=== PATIENT | male | born 1965 | race Asian ===

== ENCOUNTER 2018-12-12 13:46 | Emergency (ER) | payer OTHER ==
--- NOTE | 2018-12-12 14:05 | ED ---
HPI Chest Pain - HPI Summary HPI Summary: A 53 y/o male presents to [facility] with a chief complaint of intermittent chest pain for one week. He also reports headache for one week and weakness in his left arm two days ago. At triage he rated his pain as a 3/10 in severity. He claims that he has his pain more often at night. He denies numbness, SOB or N/ V. He describes his pain as a pressure and sometimes a mild stabbing pain. His PCP is Dr. Gray. He is a non-smoker. Hx of fasciitis. FHx mother positive for thyroid cancer, negative for GA, father at an old age and was reportedly healthy. SHx lipoma removal - History of Current Complaint Chief Complaint: EDChestPainROMI Time Seen by Provider: 12/12/18 13:57 Hx Obtained From: Patient Onset/Duration: Started Days Ago, Still Present Timing: Intermittent, Lasting Days Initial Severity: Mild Current Severity: Mild Pain Intensity: 3 Pain Scale Used: 0-10 Numeric Chest Pain Location: Diffuse Chest Pain Radiates: Yes Chest Pain Radiates To:: Arm - weakness Character: Dull/Aching, Pressure/Squeezing, Sharp/Stabbing Aggravating Factor(s): Nothing Alleviating Factor(s): Nothing Associated Signs and Symptoms: Positive: Headaches, Weakness. Negative: Numbness, Shortness of Breath, Fever, Nausea, Vomiting - Allergy/Home Medications Allergies/Adverse Reactions: Allergies Allergy/AdvReac Type Severity Reaction Status Date / Time No Known Allergies Allergy Verified 12/12/18 13:52 PMH/Surg Hx/FS Hx/Imm Hx Musculoskeletal History: Reports: Other Musculoskeletal History - fasciitis Denies: Hx Arthritis Sensory History: Denies: Hx Deafness - Surgical History Surgery Procedure, Year, and Place: lipoma removal Infectious Disease History: No Infectious Disease History: Denies: Traveled Outside the [place] in Last 30 Days - Family History Known Family History: Positive: Other - Positive: thyroid cancer-mother Negative: Cardiac Disease Review of Systems Negative: Fever Positive: Chest Pain Negative: Shortness Of Breath Negative: Vomiting, Nausea Positive: Headache, Weakness. Negative: Numbness All Other Systems Reviewed And Are Negative: Yes Physical Exam - Summary Physical Exam Summary: Appearance: The patient is well-nourished in no acute distress and in no acute pain. Skin: The skin is warm and dry and skin color reflects adequate perfusion. HEENT: The head is normocephalic and atraumatic. The pupils are equal and reactive. The conjunctivae are clear and without drainage. Nares are patent and without drainage. Mouth reveals moist mucous membranes and the throat is without erythema and exudate. The external ears are intact. The ear canals are patent and without drainage. The tympanic membranes are intact. Neck: The neck is supple with full range of motion and non-tender. There are no carotid bruits. There is no neck vein distension. Respiratory: Chest is non-tender. Lungs are clear to auscultation and breath sounds are symmetrical and equal. Cardiovascular: Heart is regular rate and rhythm. Soft systolic ejection murmur. There is no peripheral edema and pulses are symmetrical and equal. Abdomen: The abdomen is soft and non-tender. There are normal bowel sounds heard in all four quadrants and there is no organomegaly palpated. Musculoskeletal: There is no back tenderness noted. Extremities are non-tender with full range of motion. There is good capillary refill. There is no peripheral edema or calf tenderness elicited. Neurological: Patient is alert and oriented to person, place and time. The patient has symmetrical motor strength in all four extremities. Cranial nerves are grossly intact. Deep tendon reflexes are symmetrical and equal in all four extremities. Psychiatric: The patient has an appropriate affect and does not exhibit any anxiety or depression. Triage Information Reviewed: Yes Vital Signs On Initial Exam: Initial Vitals Temp Pulse Resp BP Pulse Ox 98.1 F 76 16 166/91 97 12/12/18 13:49 12/12/18 13:49 12/12/18 13:49 12/12/18 13:49 12/12/18 13:49 Vital Signs Reviewed: Yes Diagnostics - Vital Signs Vital Signs Temp Pulse Resp BP Pulse Ox 12/12/18 13:49 98.1 F 76 16 166/91 97 - Laboratory Result Diagrams: 12/12/18 14:21 12/12/18 14:21 Lab Statement: Any lab studies that have been ordered have been reviewed, and results considered in the medical decision making process. - Radiology CXR Radiology Interpretation Completed By: Radiologist Summary of Radiographic Findings: NO ACTIVE CARDIOPULMONARY DISEASE IS NOTED. ED physician has reviewed this imaging report. - CT cervical spine CT Interpretation Completed By: Radiologist Summary of CT Findings: 1. STRAIGHTENING OF THE CERVICAL SPINE, NO EVIDENCE FOR FRACTURE OR SUBLUXATION. 2. MILD TO MODERATE CERVICAL SPONDYLOSIS DESCRIBED. ED physician has reviewed this imaging report. - EKG 13:56 Cardiac Rate: NL - 60 bpm EKG Rhythm: Sinus Rhythm Summary of EKG Findings: Normal sinus rhythm at 60 bpm, normal ST, no ectopy, no STEMI Re-Evaluation - Re-Evaluation First Eval Re-Evaluation Time: 17:54 Change: Improved Comment: Discussed results. Patient is feeling better and will be dischaged. Chest Pain Course/Dx - Course Course Of Treatment: Mr. Bauer presented with a couple of days of headache and anterior chest pressure. He did not think a lot of it until he began to feel some possible weakness of his left arm although he is equivocal about it. Nothing really has been exacerbating or relieving the chest pain and it is not accompanied by any symptoms. He doesn't really have a lot of risk factors for heart disease. He was nontoxic in appearance with stable vital signs and unremarkable as recorded exam. EKG, chest x-ray and labs including a delayed troponin are all negative. CT of his neck was obtained and does show some bulging disc disease. I'm concerned that this is a cervical radiculopathy. I do not think anything dangerous happening at this point and recommended symptomatic treatment and close follow-up with his PCP. - Diagnoses Provider Diagnoses: Cervical radiculopathy Discharge - Sign-Out/Discharge Documenting (check all that apply): Patient Departure - DC Patient Received Moderate/Deep Sedation with Procedure: No - Discharge Plan Condition: Stable Disposition: HOME Patient Education Materials: Cervical Radiculopathy (ED) Referrals: Talon Gray MD [Primary Care Provider] - (next week) Additional Instructions: Recommend Ibuprofen. Return to the ED if you experience any new or worsening symptoms. - Billing Disposition and Condition Condition: STABLE Disposition: Home - Attestation Statements Document Initiated by Gareth: Yes Documenting Scribe: Christopher Mena Provider For Whom Gareth is Documenting (Include Credential): Valdo Loving MD Scribe Attestation: Christopher Guevara scribed for Valdo Loving MD on 12/12/18 at 1841. Scribe Documentation Reviewed: Yes Provider Attestation: The documentation as recorded by the Christopher armenta accurately reflects the service I personally performed and the decisions made by me, Valdo Loving MD Status of Scribe Document: Viewed
[2018-12-12 14:33] LABS: Hematocrit 39 % (36-46); Hemoglobin 12.5 g/dL (14.0-18.0); Mean Corpuscular HGB Conc 32 g/dL (31-36); Mean Corpuscular Hemoglobin 21 pg (27-31); Mean Corpuscular Volume 65 fL (80-94); Mean Platelet Volume 8.9 fL (7.4-10.4); Platelet Count 205 10^3/uL (150-450); Red Blood Count 6.04 10^6 /uL (4.18-5.48); Red Cell Distribution Width 15 % (10.5-15); White Blood Count 6.3 10^3/uL (3.5-10.8)
[2018-12-12 14:41] LABS: INR 0.92 (0.77-1.02)
[2018-12-12 14:49] LABS: Albumin 4.7 g/dL (3.2-5.2); Calcium 9.2 mg/dL (8.6-10.3); EGFR African American 94.9 (>60); EGFR Non-African American 78.5 (>60); Globulin 2.3 g/dL (2-4); Potassium 3.5 mmol/L (3.5-5.0); Total Bilirubin 0.4 mg/dL (0.2-1.0); Troponin I 0.01 ng/mL (<0.04)
[2018-12-12 15:01] LABS: ABS Basophils 0.1 10^3/ul (0-0.2); ABS Eosinophils 0.4 10^3/ul (0-0.6); ABS Lymphocytes 1.9 10^3/ul (1.0-4.8); ABS Monocytes 0.5 10^3/ul (0-0.8); ABS Neutrophils 3.3 10^3/ul (1.5-7.7); ABS Nucleated RBC 0 10^3/ul; Eosinophil % 6.6 %; Lymphocyte % 30.8 %; Nucleated Red Blood Cells % 0.2
[2018-12-12] MEDS ORDERED: Acetaminophen TAB* 325 MG PO ONE (15:31)
[2018-12-12 15:37] LABS: TSH (Thyroid Stimulating Horm) 0.78 mcIU/mL (0.34-5.60)
[2018-12-12 18:02] VITALS: BP 150/78
== END 2018-12-12 18:01 | disposition home or self-care (01) ==
LOC: ED 13:46
DX: M54.12 Radiculopathy, cervical region (principal); R07.89 Other chest pain; R51 Headache; R53.1 Weakness
CPT/HCPCS: 36415; 71045; 72125; 80053; 83605; 84443; 84484; 85025; 85060; 85379; 85610; 93005; 99283; A9270-GY

== ENCOUNTER 2018-12-18 19:24 | Observation (INO) | payer OTHER ==
--- NOTE | 2018-12-18 23:37 | ED ---
HPI Chest Pain - HPI Summary HPI Summary: This patient is a 53 year old M presenting to [facility] with a chief complaint of intermittent chest heaviness since 12/12/18. Here was here at [facility] on 12/12/18 during which he had a chest x-ray, CT scan, blood test, and EKG. He was d/c and told that he had a bulging disc in his neck. After leaving, he reports that the pain intensified. Patient went to see his PCP, Dr. Gray, today for a follow-up, and he was referred back here for a stress test. Patient reports headache, left arm weakness (only 12/17/18), and left arm numbness (only ). - History of Current Complaint Chief Complaint: EDGeneral Time Seen by Provider: 12/18/18 23:06 Hx Obtained From: Patient Onset/Duration: Started Days Ago - 12/12/18, Still Present Timing: Lasting Days - 12/12/18 Initial Severity: Moderate Current Severity: Moderate Pain Intensity: 7 Pain Scale Used: 0-10 Numeric Character: Heaviness Associated Signs and Symptoms: Positive: Chest Pain, Headaches, Numbness - Left arm, only on 12/17/18, Weakness - Left arm, only on 12/17/18 - Allergy/Home Medications Allergies/Adverse Reactions: Allergies Allergy/AdvReac Type Severity Reaction Status Date / Time No Known Allergies Allergy Verified 12/18/18 19:35 Home Medications: Home Medications NK [No Home Medications Reported] 12/18/18 [History Confirmed 12/18/18] PMH/Surg Hx/FS Hx/Imm Hx Musculoskeletal History: Reports: Other Musculoskeletal History - fasciitis Denies: Hx Arthritis Sensory History: Denies: Hx Deafness - Surgical History Surgery Procedure, Year, and Place: lipoma removal Infectious Disease History: No Infectious Disease History: Denies: Traveled Outside the [place] in Last 30 Days - Family History Known Family History: Positive: Other - Positive: thyroid cancer-mother Negative: Cardiac Disease - Social History Alcohol Use: Alcohol Amount: unknown Substance Use Type: Reports: None Smoking Status (MU): Unknown if Ever Smoked Review of Systems Positive: Chest Pain - Heaviness, intermittent Positive: Headache, Weakness - Left arm, only on 12/17/18, Numbness - Left arm, only on 12/17/18 All Other Systems Reviewed And Are Negative: Yes Physical Exam - Summary Physical Exam Summary: VITAL SIGNS: Reviewed. GENERAL: Patient is a well-developed and nourished MALE who is lying comfortable in the stretcher. Patient is not in any acute respiratory distress. HEAD AND FACE: No signs of trauma. No ecchymosis, hematomas or skull depressions. No sinus tenderness. EYES: PERRLA, EOMI x 2, No injected conjunctiva, no nystagmus. EARS: Hearing grossly intact. Ear canals and tympanic membranes are within normal limits. MOUTH: Oropharynx within normal limits. NECK: Supple, trachea is midline, no adenopathy, no JVD, no carotid bruit, no c- spine tenderness, neck with full ROM. CHEST: Symmetric, no tenderness at palpation LUNGS: Clear to auscultation bilaterally. No wheezing or crackles. CVS: Regular rate and rhythm, S1 and S2 present, no murmurs or gallops appreciated. ABDOMEN: Soft, non-tender. No signs of distention. No rebound no guarding, and no masses palpated. Bowel sounds are normal. EXTREMITIES: FROM in all major joints, no edema, no cyanosis or clubbing. NEURO: Alert and oriented x 3. No acute neurological deficits. Speech is normal and follows commands. SKIN: Dry and warm Triage Information Reviewed: Yes Vital Signs On Initial Exam: Initial Vitals Temp Pulse Resp BP Pulse Ox 97.6 F 62 16 172/102 98 12/18/18 19:30 12/18/18 19:30 12/18/18 19:30 12/18/18 19:30 12/18/18 19:30 Vital Signs Reviewed: Yes Diagnostics - Vital Signs Vital Signs Temp Pulse Resp BP Pulse Ox 12/18/18 22:00 97.7 F 60 16 142/85 99 12/18/18 19:30 97.6 F 62 16 172/102 98 - Laboratory Result Diagrams: 12/18/18 23:55 12/18/18 23:55 Lab Statement: Any lab studies that have been ordered have been reviewed, and results considered in the medical decision making process. - EKG 19:48 Cardiac Rate: NL - 64 BPM EKG Rhythm: Sinus Rhythm Summary of EKG Findings: J point elevation. No ischemic changes. Chest Pain Course/Dx - Course Course Of Treatment: This patient is a 53 year old M presenting to [facility] with a chief complaint of intermittent chest heaviness since 12/12/18. RBC 6.10 H, Hgb 12.5 L, MCV 65 L, MCH 21 L, Glucose 109 H, ALT 94 H. EKG showed J point elevation but was otherwise normal. I spoke with Dr. Cline who will admit the pt with a dx of chest pain. - Diagnoses Provider Diagnoses: Chest pain - Provider Notifications Discussed Care Of Patient With: Kendra Cline - Hospitalist Time Discussed With Above Provider: 01:02 Instructed by Provider To: Admit As Inpatient Discharge - Sign-Out/Discharge Documenting (check all that apply): Patient Departure - Admit Patient Received Moderate/Deep Sedation with Procedure: No - Discharge Plan Condition: Stable Disposition: ADMITTED TO [facility] Referrals: Talon Gray MD [Primary Care Provider] - - Attestation Statements Document Initiated by Scribe: Yes Documenting Scribe: Ajrun Bey Provider For Whom Scribe is Documenting (Include Credential): Brook Ramirez MD Scribe Attestation: Arjun Guevara, scribed for Brook Ramirez MD on 12/19/18 at 0102. Status of Scribe Document: Ready
[2018-12-18] MEDS ORDERED: Aspirin 81 mg CHEW TAB* 81 MG TAB.CHEW PO ONE (23:39)
[2018-12-19 00:05] LABS: ABS Basophils 0.1 10^3/ul (0-0.2); ABS Eosinophils 0.4 10^3/ul (0-0.6); ABS Lymphocytes 3.8 10^3/ul (1.0-4.8); ABS Monocytes 0.6 10^3/ul (0-0.8); ABS Neutrophils 3.2 10^3/ul (1.5-7.7); ABS Nucleated RBC 0 10^3/ul; Eosinophil % 5.5 %; Hematocrit 40 % (36-46); Hemoglobin 12.5 g/dL (14.0-18.0); Mean Corpuscular HGB Conc 31 g/dL (31-36); Mean Corpuscular Hemoglobin 21 pg (27-31); Mean Corpuscular Volume 65 fL (80-94); Mean Platelet Volume 8.8 fL (7.4-10.4); Nucleated Red Blood Cells % 0.1; Platelet Count 206 10^3/uL (150-450); Red Cell Distribution Width 15 % (10.5-15)
[2018-12-19 00:26] LABS: Albumin 4.6 g/dL (3.2-5.2); Albumin/Globulin Ratio 2.1 (1-3); BUN/Creatinine Ratio 12.9 (8-20); Calcium 9.2 mg/dL (8.6-10.3); EGFR African American 114.5 (>60); EGFR Non-African American 94.7 (>60); Globulin 2.2 g/dL (2-4); Magnesium 2.1 mg/dL (1.9-2.7); Potassium 3.5 mmol/L (3.5-5.0); Total Bilirubin 0.4 mg/dL (0.2-1.0); Total Protein 6.8 g/dL (6.4-8.9)
[2018-12-19] MEDS ORDERED: Ondansetron INJ* 2 MG/ML VIAL IV PRN (02:35)
[2018-12-19] MEDS ORDERED: Al Hydrox/Mg Hydrox/Simet LIQ* 30 ML UDC PO PRN (02:35)
[2018-12-19] MEDS ORDERED: Acetaminophen TAB* 325 MG PO PRN (02:35)
--- NOTE | 2018-12-19 04:43 | HP ---
CC: Talon Gray MD * HISTORY AND PHYSICAL: DATE OF ADMISSION: 12/19/18 TIME OF EVALUATION: 0200 PRIMARY CARE PHYSICIAN: Talon Gray MD CHIEF COMPLAINT: Chest pain. HISTORY OF PRESENT ILLNESS: This is a 53-year-old male with an unremarkable past medical history, who states he has had intermittent chest pain on and off for the past week. He states he came the the emergency room on the 12/12/18 where he was ruled out for acute coronary syndrome with two negative troponins. He had a chest x-ray and a cervical spine CT. The cervical spin CT was notable for straightening of the cervical spine. No evidence of fracture or subluxation, but [id number] cervical spondylosis as described. They thought that his headache and chest pain were due to a cervical radiculopathy with referred pain to the chest. He states the headache and the chest pain had started at the same time. They are not always together. They wax and wane. Nothing seems to be alleviate it or exacerbate it. His headaches is located in the top posterior with some neck pain and he has substernal chest tightness. No nausea, no shortness of breath, no vomiting or diarrhea, no fever. He states the past few days he has had a sore throat and a cough. The patient was sent home on the 12/12/18 from the emergency room and recommended followup with his primary care physician. He followed up with his primary care physician yesterday, 12/18/18 and he recommended he go back to the emergency room and stated he likely needs a stress test. In the emergency room, the patient was given aspirin 324 mg and referred to the hospitalist service for further evaluation. PAST MEDICAL HISTORY: None. MEDICATIONS: None. ALLERGIES: No known drug allergies. SOCIAL HISTORY: The patient lives with his and his daughter. His is his healthcare proxy. No history of smoking or illicit drug use. He occasionally drinks alcohol. He works in the [employer]. Code status is full code. FAMILY HISTORY: Father from old age. His mother is alive, had a stroke last year. REVIEW OF SYSTEMS: A 14-point review of systems as mentioned in the HPI, otherwise negative. Also, denies any exertional activity. No increase in burping or indigestion or GI symptoms. PHYSICAL EXAMINATION GENERAL: In no acute distress, resting comfortably with his daughter at the bedside. Vitals: Temp 97, pulse rate 53, respiratory rate is 14, oxygen saturation 98% on room air, blood pressure 142/85. HEENT: Head: Normocephalic. Pupils equal and reactive. Anicteric. Oropharynx: Mucous membranes moist. NECK: Supple. No lymphadenopathy. RESPIRATORY: Clear to auscultation. No wheeze, rhonchi or rales. CARDIAC: Regular rate and rhythm. No murmurs, rubs or gallops. ABDOMEN: Soft, nontender, nondistended. Extremities: No clubbing, cyanosis or edema. +1 DP. NEUROLOGIC: Alert and oriented x3. No gross focal neurologic deficits. DIAGNOSTIC STUDIES/LAB DATA: White count 8, hemoglobin 12.5, hemoglobin 40, platelets 206. Sodium 139, potassium 3.5, chloride 105, bicarb 26, BUN 11, creatinine 0.85, glucose 109, troponin is 0, BNP is 26. RADIOGRAPHIC DATA: EKG shows normal sinus rhythm. Early repolarization. Findings unchanged from his prior EKG. Chest x-ray from 12/12/18, no active cardiopulmonary disease. ASSESSMENT: This is a 53-year-old male with an unremarkable past medical history, who presents to the emergency room from his primary care office for a chest pain and headache. 1. Chest pain and headache. His initial workup for acute coronary syndrome is negative. He was ruled out on 12/12/18 for acute coronary syndrome. He does have some cervical spondylosis on his CAT scan that may be referred pain for his chest pain, it is unclear at this time. There is no obvious etiology for his chest pressure. Plan: We will admit him to CDU for observation. Continue trend his troponin, check a lipid panel, order a treadmill stress test. Continue him on a baby aspirin. If his stress test is negative, he should follow with his primary regarding his cervical radiculopathy and further workup for that. 2. FEN. We will keep him n.p.o. 3. DVT prophylaxis. The patient scores moderate risk. We will place him on heparin subcu t.i.d. 4. Code status. Full code. PATIENT TIME: Greater than 30 minutes was spent doing the history and physical , more than half the time spent in direct patient contact. [id number]/[facility] #: [id number] [facility]ITAL[facility]
[2018-12-19 06:00] LABS: HDL Cholesterol 37.7 mg/dL
[2018-12-19] MEDS ORDERED: Heparin VIAL(*) 5000 UNITS/ML VIAL (FIVE THOUSAND) SUBCUT SCH (06:00)
[2018-12-19] MEDS ORDERED: Aspirin 81 mg CHEW TAB* 81 MG TAB.CHEW PO SCH (09:00)
[2018-12-19 11:49] VITALS: BP 142/93
--- NOTE | 2018-12-19 21:18 | DS ---
DISCHARGE SUMMARY: DATE OF ADMISSION: 12/19/18 DATE OF DISCHARGE: 12/19/18 PRIMARY CARE PROVIDER: Dr. Gray. PRINCIPAL DIAGNOSIS: Noncardiac chest pain. SECONDARY DIAGNOSIS: Hypertensive response to exercise. DISCHARGE MEDICATIONS: Amlodipine 5 mg p.o. daily (new). HOSPITAL COURSE: Mr. Bauer is a 53-year-old male with no significant past medical history who states that over the last 1 week he has had off-and-on chest pain with associated neck and headache pain. The patient was initially seen in the ER on 12/12/18 where he was ruled out for an acute coronary syndrome and was felt to have radicular pain from the neck radiating to the chest. He was referred to his primary care provider whom he saw on 12/18/18 who then requested that he return to the emergency room to be admitted for stress test. The patient performed an exercise treadmill stress test on . This was a maximal stress test without any ischemic changes. He did have, however, a hypertensive response to exercise. The cause of the patient's chest pain still may be musculoskeletal or radicular pain. At this point, he is stable for discharge home. I have discussed with the patient starting amlodipine 5 mg daily for hypertension. His blood pressures have varied throughout the course of this hospitalization from 126/78, up to a maximum of 205/98. The patient will need further monitoring of his blood pressure as an outpatient and adjustments made if his blood pressure does not come to goal. Of note, the patient also had a lipid profile obtained, which revealed a total cholesterol of 155, an LDL of 83, and an HDL of 37.7. On the day of discharge, the patient is awake, alert, and oriented, sitting up on the edge of the bed, in no acute distress. HEENT: Pupils are equal and round. Extraocular muscles are intact. Oropharynx is clear. Oral mucosa is moist. Cardiac: Normal S1, S2. Regular rate and rhythm. I do not appreciate any murmurs. There is no lower extremity edema. Pulmonary: Lungs are clear to auscultation bilaterally. Abdomen: Bowel sounds are present. Abdomen is soft, nontender, nondistended. FOLLOWUP CONCERNS: The patient is being discharged to home today, 12/19/18. ACTIVITY LEVEL: As tolerated. DIET: Heart healthy. CONDITION ON DISCHARGE: Stable. The patient has been asked to follow up with Dr. Gray in the next 4 to 7 days. TIME SPENT: Twenty-five minutes were spent discharging this patient. [id number]/[facility] #: [id number] [facility]
== END 2018-12-19 14:50 | disposition home or self-care (01) ==
LOC: ED 19:24 → MEDTELE 12-19 02:35
PROVIDERS: ADMIT Pediatrics; ATTEND Hospitalist
DX: R07.89 Other chest pain (principal); R51 Headache; R53.1 Weakness; R20.0 Anesthesia of skin
CPT/HCPCS: 36415; 80053; 80061; 83735; 83880; 84484; 85025; 85730; 93005; 96372; 96374; 99283; A9270-GY; G0378; J1644

== ENCOUNTER 2019-04-09 18:43 | Emergency (ER) | payer OTHER ==
--- OUTSIDE RECORDS SUMMARY | 2019-04-09 18:52 | XMS REPORT | Continuity of Care Document ---
:1965 External Reference #:[id number] Author Name Janki Prater, [facility] Address [address] [place] [address] Care Team Providers Name Role Phone Talon Gray MD Care Team Information Director Of Strategic Sales Unavailable Talon Gray MD Primary Care Physician Unavailable Payers Date Identification Numbers Payment Provider Subscriber Effective: Policy Number: [id number] [facility] Antonio Pitts 2015 [employer] Number: [id number] [address] PayID: [id number] [place] [address] Problems Active Problems Provider Date Essential hypertension Talon Gray M.D. 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 [employer] Tobacco Use Start: Unknown Denies Tobacco Use ETOH Use Occasional Recreational Drug Use Denies Drug Use Tobacco Use Start: Unknown Patient has never smoked Exercise Type/Frequency Current Does not exercise Allergies, Adverse Reactions, Alerts Description No Known Drug Allergies Medications Active Medications SIG Qnty Indications Ordering Provider Date Famotidine take one tablet 15tabs L29.8 Janki Prater, 03/17/2019 20mg Tablets by mouth twice a 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 12/18/2018 Capsules needed for pain, with food No Active Medications Unknown 06/21/2014 - 06/17/2017 Physical Therapy evaluate and 724.4 Rosetta Saunders 04/28/2011 - treat low back Brenna Heard 06/21/2014 pain and neck pain with r arm numbness Levaquin 1 po qd 25tabs 601.9 Kenneth Ramirez, 05/18/2010 - 500mg Tablets M.D. 04/28/2011 Cipro 1 po bid x10d 20tabs 601.9 Trisha Gamble, 05/05/2010 - 500mg Tablets Afnp-C 05/15/2010 Norvasc 1 by mouth every Unknown - 5mg Tablets day 02/26/2019 Immunizations CPT Code Status Date Vaccine Lot # [id number] Given 06/21/2014 Tdap Tetanus, W Pertussis [id number] Vital Signs Date Vital Result Comment 03/17/2019 6:21pm BP Systolic 108 mmHg BP Diastolic 80 mmHg Heart Rate 62 /min Body Temperature 97.5 F Respiratory Rate 16 /min Height 67 inches 5'7" Weight 185.00 lb BMI (Body Mass Index) 29.0 kg/m2 02/26/2019 9:44am BP Systolic 128 mmHg BP Diastolic 88 mmHg Heart Rate 68 /min Body Temperature 98.0 F Height 67 inches 5'7" Weight 191.00 lb BMI (Body Mass Index) 29.9 kg/m2 12/31/2018 11:06am BP Systolic 130 mmHg BP Diastolic 82 mmHg Heart Rate 68 /min Body Temperature 98.1 F Respiratory Rate 16 /min O2 % BldC Oximetry 95 % Height 67 inches 5'7" Weight 193.00 lb BMI (Body Mass Index) 30.2 kg/m2 12/18/2018 6:08pm BP Systolic 142 mmHg BP Diastolic 80 mmHg Heart Rate 64 /min Body Temperature 98.5 F Respiratory Rate 16 /min Height 67 inches 5'7" Weight 195.00 lb BMI (Body Mass Index) 30.5 kg/m2 06/17/2017 4:31pm BP Systolic 138 mmHg BP Diastolic 84 mmHg Heart Rate 56 /min Body Temperature 97.9 F Respiratory Rate 16 /min Height 67 inches 5'7" Weight 194.38 lb BMI (Body Mass Index) 30.4 kg/m2 06/12/2017 4:28pm BP Systolic 130 mmHg BP Diastolic 78 mmHg Heart Rate 80 /min Body Temperature 98.4 F Respiratory Rate 16 /min Height 67 inches 5'7" Weight 196.00 lb BMI (Body Mass Index) 30.7 kg/m2 06/02/2015 11:13am BP Systolic 140 mmHg BP Diastolic 80 mmHg Heart Rate 64 /min Body Temperature 97.7 F Respiratory Rate 16 /min Height 67 inches 5'7" Weight 185.25 lb BMI (Body Mass Index) 29.0 kg/m2 06/21/2014 2:30pm BP Systolic 134 mmHg BP Diastolic 82 mmHg Heart Rate 64 /min Body Temperature 97.7 F Respiratory Rate 16 /min Height 67 inches 5'7" Weight 183.00 lb BMI (Body Mass Index) 28.7 kg/m2 04/28/2011 10:48am BP Systolic 140 mmHg BP Diastolic 90 mmHg Heart Rate 72 /min Respiratory Rate 14 /min Height 66.75 inches 5'6.75" Weight 190.00 lb BMI (Body Mass Index) 30.0 kg/m2 05/18/2010 8:06pm BP Systolic 112 mmHg BP Diastolic 70 mmHg Heart Rate 72 /min Body Temperature 98.7 F Respiratory Rate 16 /min Height 66.75 inches 5'6.75" Weight 188.00 lb BMI (Body Mass Index) 29.7 kg/m2 05/05/2010 8:58am BP Systolic 140 mmHg BP Diastolic 78 mmHg Heart Rate 68 /min Body Temperature 97.3 F Respiratory Rate 16 /min Height 66.75 inches 5'6.75" Weight 188.00 lb BMI (Body Mass Index) 29.7 kg/m2 Results Test Date Facility Test Result H/L Range Note CBC Auto Diff 12/18/2018 [facility] [place] Blood Count 8.0 10^3/uL N 3.5-10.8 Red Blood Count 6.10 10^6/uL High 4.18-5.48 Hemoglobin 12.5 g/dL Low 14.0-18.0 Hematocrit 40 % N 36-46 Mean Corpuscular Volume 65 fL Low 80-94 Mean Corpuscular Hemoglobin 21 pg Low 27-31 Mean Corpuscular HGB Conc 31 g/dL N 31-36 Red Cell Distribution Width 15 % N 10.5-15 Platelet Count 206 10^3/uL N 150-450 Mean Platelet Volume 8.8 fL N 7.4-10.4 Abs Neutrophils 3.2 10^3/uL N 1.5-7.7 Abs Lymphocytes 3.8 10^3/uL N 1.0-4.8 Abs Monocytes 0.6 10^3/uL N 0-0.8 Abs Eosinophils 0.4 10^3/uL N 0-0.6 Abs Basophils 0.1 10^3/uL N 0-0.2 Abs Nucleated RBC 0 10^3/uL Granulocyte % 39.6 % Lymphocyte % 47.0 % Monocyte % 7.1 % Eosinophil % 5.5 % Basophil % 0.8 % Nucleated Red Blood Cells % 0.1 Comp Metabolic Panel 12/18/2018 [facility] [place] Sodium 139 mmol/L N 135-145 Potassium 3.5 mmol/L N 3.5-5.0 Chloride 105 mmol/L N 101-111 Co2 Carbon Dioxide 26 mmol/L N 22-32 Anion Gap 8 mmol/L N 2-11 Glucose 109 mg/dL High 70-100 Blood Urea Nitrogen 11 mg/dL N 6-24 Creatinine 0.85 mg/dL N 0.67-1.17 BUN/Creatinine Ratio 12.9 N 8-20 Calcium 9.2 mg/dL N 8.6-10.3 Total Protein 6.8 g/dL N 6.4-8.9 Albumin 4.6 g/dL N 3.2-5.2 Globulin 2.2 g/dL N 2-4 Albumin/Globulin Ratio 2.1 N 1-3 Total Bilirubin 0.40 mg/dL N 0.2-1.0 Alkaline Phosphatase 64 U/L N 34-104 Alt 94 U/L High 7-52 Ast 37 U/L N 13-39 Egfr Non- 94.7 >60 Egfr 114.5 >60 1 Laboratory test finding 12/18/2018 [facility] [place] Magnesium 2.1 mg/dL N 1.9-2.7 Troponin I 0.00 ng/mL <0.04 2 B-Type Natriuretic Peptide BNP 26 pg/mL <=100 Partial Thrombo Time PTT 29.4 seconds N 26.0-36.3 Laboratory test 12/12/2018 [facility] [place] Troponin I 0.01 ng/mL <0.04 3 finding Inr/Protime 12/12/2018 [facility] [place] Inr 0.92 N 0.77-1.02 Laboratory test 12/12/2018 [facility] [place] D Dimer Quantitative < 200 ng/mL N Less Than 230 4 finding Lactic Acid 1.8 mmol/L N 0.5-2.0 5 Comp Metabolic Panel 12/12/2018 [facility] [place] Sodium 138 mmol/L N 135-145 Potassium 3.5 mmol/L N 3.5-5.0 Chloride 106 mmol/L N 101-111 Co2 Carbon Dioxide 24 mmol/L N 22-32 Anion Gap 8 mmol/L N 2-11 Glucose 129 mg/dL High 70-100 Blood Urea Nitrogen 13 mg/dL N 6-24 Creatinine 1.00 mg/dL N 0.67-1.17 BUN/Creatinine Ratio 13.0 N 8-20 Calcium 9.2 mg/dL N 8.6-10.3 Total Protein 7.0 g/dL N 6.4-8.9 Albumin 4.7 g/dL N 3.2-5.2 Globulin 2.3 g/dL N 2-4 Albumin/Globulin Ratio 2.0 N 1-3 Total Bilirubin 0.40 mg/dL N 0.2-1.0 Alkaline Phosphatase 68 U/L N 34-104 Alt 90 U/L High 7-52 Ast 37 U/L N 13-39 Egfr Non- 78.5 >60 Egfr 94.9 >60 6 Laboratory test finding 12/12/2018 [facility] [place] Troponin I 0.01 ng/mL <0.04 7 TSH (Thyroid Stim Horm) 0.78 mcIU/mL N 0.34-5.60 CBC Auto Diff 12/12/2018 [facility] [place] White Blood Count 6.3 10^3/uL N 3.5-10.8 Red Blood Count 6.04 10^6/uL High 4.18-5.48 Hemoglobin 12.5 g/dL Low 14.0-18.0 Hematocrit 39 % N 36-46 Mean Corpuscular Volume 65 fL Low 80-94 Mean Corpuscular Hemoglobin 21 pg Low 27-31 Mean Corpuscular HGB Conc 32 g/dL N 31-36 Red Cell Distribution Width 15 % N 10.5-15 Platelet Count 205 10^3/uL N 150-450 Mean Platelet Volume 8.9 fL N 7.4-10.4 Abs Neutrophils 3.3 10^3/uL N 1.5-7.7 Abs Lymphocytes 1.9 10^3/uL N 1.0-4.8 Abs Monocytes 0.5 10^3/uL N 0-0.8 Abs Eosinophils 0.4 10^3/uL N 0-0.6 Abs Basophils 0.1 10^3/uL N 0-0.2 Abs Nucleated RBC 0 10^3/uL Granulocyte % 53.4 % Lymphocyte % 30.8 % Monocyte % 8.0 % Eosinophil % 6.6 % Basophil % 1.2 % Nucleated Red Blood Cells % 0.2 Laboratory test 12/12/2018 [facility] [place] Pathologist Review (SEE NOTE) 8 finding Laboratory test 07/16/2017 [facility] [place] Surgical Pathology SEE RESULT BELOW 9, 10 finding Iron & Iron Binding 06/26/2017 [facility] [place] Iron 184 g/dL N 50-212 11 Capacity Unsaturated Iron Binding 160 g/dL N Total Iron Binding Capacity 344 g/dL N 250-450 % Iron Saturation 53 % N 15-55 Laboratory test finding 06/26/2017 [facility] [place] Ferritin 1058.6 ng/mL High 24-336 12 Transferrin 263 mg/dL N 200 - 360 13 Laboratory test 06/21/2017 Neil Robyn(fma) Triglycerides 205 mg/dL High 30-200 14 finding Hemoglobin 06/21/2017 [facility] [place] Hemoglobin A2 2.4 % N 2.0-3.3 15 Electropheresis Hemoglobin F 0.0 % N 0.0-0.9 16 Hemoglobin A 97.6 % N 95.8-98.0 Variant Hemoglobin 0.0 % N 17 Hemoglobin Electro Interp See Comment N 18 Comprehensive Metabolic 06/12/2017 Neil Robyn(fma) Sodium 137 mEq/L 134-149 Prof Potassium 3.7 mEq/L 3.6-5.5 Chloride 102 mEq/L 94-112 Carbon Dioxide 24 mEq/L 21-32 Glucose 141 mg/dL High 70-105 BUN 10 mg/dL 6-26 Creatinine 1.0 mg/dL 0.6-1.4 BUN/Creat Ratio 10.0 CALC 8.0-36.0 Calcium 9.9 mg/dL 8.6-10.2 Total Protein 7.2 g/dL 6.4-8.3 Albumin 4.6 g/dL 3.8-5.5 Globulin 2.6 g/dL 2.0-4.8 A/G Ratio 1.8 CALC 0.6-2.3 Alk. Phosphatase 76 U/L 22-95 Alt (SGPT) 121 U/L High 7-35 Ast (Sgot) 46 U/L High 5-34 Total Bilirubin 0.3 mg/dL 0.2-1.3 GFR Non- >60 ml/min/1.73m^ >=60 GFR >60 ml/min/1.73m^ >=60 Laboratory test finding 06/12/2017 Rashaad Carlson([facility]) PSA 1.9 ng/mL 0.0 -4.0 Uric Acid 8.1 mg/dL 2.5-9.2 Complete Blood Count 06/12/2017 Rashaad Carlson(a) WBC 6.7 x10^3/UL 3.6 -9.6 RBC 6.23 x10^6/UL High 3.90-5.70 19 HGB 13.2 g/dL 12.1-17.2 HCT 42 % 36-50 MCV 68.0 fL Low 82.2-97.4 20 MCH 21.3 pg Low 27.6-33.3 MCHC 31.3 g/dL Low 33.0-35.5 RDW 14.6 % High 11.6-13.7 PLT 243 x10^3/UL 150-400 MPV 8.2 fL 7.4-10.4 Gran # 3.8 x10^3/UL 1.5-7.2 Lymph# 2.6 x10^3/UL 0.7-4.9 [place]# 0.3 x10^3/UL 0.1-0.9 Gran % 54.4 % 42.2-75.2 Lymph % 39.8 % 20.5-51.1 [place]% 5.8 % 1.7-9.3 Laboratory test 06/12/2017 Neil Robyn(a) LDL, Direct 125 mg/dL 0- 130 finding Laboratory test 06/12/2017 [facility] Medicine Sedimentation Rate 2 MM finding (607)- - Hemoglobin A1c (Fma) 5.6 % 4.1-5.7 Lipid Profile 06/12/2017 Neil Robyn(fma) Cholesterol 276 mg/dL High 120-200 Triglycerides 540 mg/dL High 30-200 HDL Cholesterol 55 mg/dL 30-70 LDL (Calculated) 113 CALC 0-129 VLDL Cholesterol 108 mg/dL High 0-50 HDL Risk Factor 5.0 CALC High 0.0-4.4 Surgical 08/03/2014 [facility] [place] S RUN DATE: 21 Pathology 08/05/ <SEE NOTE> Lipid Profile 06/23/2014 Rashaad Robyn(a) Cholesterol 244 mg/dL High 120-200 Triglycerides 292 mg/dL High 30-200 HDL Cholesterol 52 mg/dL 30-70 LDL (Calculated) 134 CALC High 0-129 VLDL Cholesterol 58 mg/dL High 0-50 HDL Risk Factor 4.7 CALC High 0.0-4.4 Comprehensive Metabolic 06/23/2014 Neil Flora(a) Sodium 144 mEq/L 134-149 Prof Potassium 4.5 mEq/L 3.6-5.5 Chloride 104 mEq/L 94-112 Carbon Dioxide 25 mEq/L 21-32 Glucose 111 mg/dL High 70-105 22 BUN 12 mg/dL 6-26 Creatinine 1.0 mg/dL 0.6-1.4 BUN/Creat Ratio 12.0 CALC 8.0-36.0 Calcium 10.0 mg/dL 8.6-10.2 Total Protein 8.0 g/dL 6.3-8.1 Albumin 5.1 g/dL 3.8-5.5 Globulin 2.9 g/dL 2.0-4.8 A/G Ratio 1.8 CALC 0.6-2.3 Alk. Phosphatase 64 U/L 22-95 Alt (SGPT) 54 U/L High 7-35 23 Ast (Sgot) 27 U/L 5-34 Total Bilirubin 0.7 mg/dL 0.2-1.3 Laboratory test 06/23/2014 Rashaad Robyn(a) LDL, Direct 135 mg/dL High 0-130 finding Laboratory test 06/23/2014 [facility] Hemoglobin A1c 5.0 % 4.1-5.7 finding (607)- - (Fma/CMC,CX) Laboratory test 06/01/2010 Neil Robyn(fma) PSA 0.90 ng/mL 0.00-4.00 finding Laboratory test 05/05/2010 [facility] Urine Culture No growth. finding [id number] [phone] Ua - Micro (Fma) 05/05/2010 [facility] Appearance CLEAR (607)- - Color YELLOW Glucose NEG Bilirubin NEG Ketones TRACE SP Grav >1.030 Blood NEG PH 5.5 Protein NEG Urobil 0.2 Nitrite POSITIVE Leukocytes (Fma/CMC/[facility]) NEG Hyaline - /Lpf Granular - /Lpf WBC (Fma,[facility]) 2-4 RBC 0-1 Mucus SMALL AMT /Lpf Epith OCCASS /Lpf Bacteria 2+ /Hpf Amorphous - /Lpf Crystals, Fluid (Fma/CMC/CTX) - Z#Comments - 1 Because ethnic data is not always readily available, this report includes an eGFR for both -Americans and non- Americans. The National Kidney Disease Education Program (NKDEP) does not endorse the use of the MDRD equation for patients that are not between the ages of 18 and 70, are , have extremes of body size, muscle mass, or nutritional status, or are non- or non-. According to the National Kidney Foundation, irrespective of diagnosis, the stage of the disease is based on the level of kidney function: Stage Description GFR(mL/min/1.73 m(2)) 1 Kidney damage with normal or decreased GFR 90 2 Kidney damage with mild decrease in GFR 60-89 3 Moderate decrease in GFR 30-59 4 Severe decrease in GFR 15-29 5 Kidney failure <15 (or dialysis) 2 Troponin-I testing on Plasma Separator Tubes (PST) has a known false positive rate of 0.20-0.40%. All positive troponins reflex immediate secondary confirmatory testing. 3 Troponin-I testing on Plasma Separator Tubes (PST) has a known false positive rate of 0.20-0.40%. All positive troponins reflex immediate secondary confirmatory testing. 4 Please note: The following may produce a false positive D Dimer test: - Rheumatoid factor greater than 60 IU/ml - Plasma hemoglobin greater than 0.05 gm/dl - Bilirubin greater than 50 mg/dl - Lipids greater than 1000 mg/dl - FDP greater than 20 ug/ml 5 [facility] Severe Sepsis and Septic Shock Management Bundle Measure requires all lactic acids initially measuring >2.0 mmol/L be repeated. 6 Because ethnic data is not always readily available, this report includes an eGFR for both -Americans and non- Americans. The National Kidney Disease Education Program (NKDEP) does not endorse the use of the MDRD equation for patients that are not between the ages of 18 and 70, are , have extremes of body size, muscle mass, or nutritional status, or are non- or non-. According to the National Kidney Foundation, irrespective of diagnosis, the stage of the disease is based on the level of kidney function: Stage Description GFR(mL/min/1.73 m(2)) 1 Kidney damage with normal or decreased GFR 90 2 Kidney damage with mild decrease in GFR 60-89 3 Moderate decrease in GFR 30-59 4 Severe decrease in GFR 15-29 5 Kidney failure <15 (or dialysis) 7 Troponin-I testing on Plasma Separator Tubes (PST) has a known false positive rate of 0.20-0.40%. All positive troponins reflex immediate secondary confirmatory testing. 8 Mild microcytic anemia noted. Additional studies as clinically warranted. Reviewed by Dr. Moralez 9 [id number] SEE RESULT BELOW Name: ANTONIO MOORE : [address]: Renetta Morales DO Acct: [id number] Unit: [id number] AGE: 51 Location: [facility] Re07/16/17 SEX: M Status: DEP REF SPEC: [id number] CONNER: 07/16/17- SUBM DR: Renetta Morales DO REQ: [id number] RECD: 07/16/179 STATUS: TIFFANIE MOCTEZUMA DR: Talon Gray MD _ ORDERED: LEVEL 4/3 COMMENTS: [id number] FINAL DIAGNOSIS 1. Colon, ascending, biopsy: -- Tubular adenoma. -- No high grade dysplasia or malignancy. 2. Colon, descending, biopsy: -- Hyperplastic polyps. 3. Colon, sigmoid, biopsy: -- Hyperplastic polyp. CLINICAL HISTORY 51 year old male here for screening colonoscopy; no family history of colon cancer POST-OPERATIVE DIAGNOSIS 8 mm sessile ascending colon polyp, status post polypectomy with clip; two 2- 3 mm sessile descending colon polyps; one diminutive sessile rectal polyp; normal terminal ileum; good prep. Conclusions/Plan: Follow-up pathology GROSS DESCRIPTION 1. The specimen is received in formalin labeled, Ascending Colon Polyp, and consists of a 0.9 x 0.7 by up to 0.4 cm aggregate of ventura-pink irregular to polypoid soft tissue fragments, the largest of which measures up to 0.9 cm. The largest fragment is inked, bisected and the specimen is submitted entirely in one cassette. 2. The specimen is received in formalin labeled, Descending Colon Polyps, and consists of two ventura-red irregular soft tissue fragments measuring 0.2 x 0.2 x 0.2 cm and 0.5 by up to 0.3 x 0.2 cm which are submitted entirely in one cassette. CONTINUED ON NEXT PAGE * ML=Testing performed at Main Lab DEPARTMENT OF PATHOLOGY, [address] [place] [address] Rustam Moralez M.D. Director [facility] # [id number] RUN DATE: 07/17/17 [facility] LAB LIVE PAGE 2 Patient: ANTONIO MOORE Stefanie [id number] (Continued) GROSS DESCRIPTION (Continued) GROSS DESCRIPTION (Continued) 3. The specimen is received in formalin labeled, Sigmoid Colon Polyp, and consists of a 0.3 x 0.3 by up to 0.2 cm ventura-pink to speckled red polypoid soft tissue fragment which is inked and submitted entirely in one cassette. Signed (signature on file) Janki Rios MD 1342 END OF REPORT * ML=Testing performed at Main Lab DEPARTMENT OF PATHOLOGY, [address] [place] [address] Rustam Moralez M.D. Director [facility] # [id number] 11 [id number] 12 [id number] Test Performed by: [address] [address] 14 FASTING 15 [id number] 16 ADDITIONAL INFORMATION This test has been modified from the machine washer's instructions. Its performance characteristics were determined by [facility] in a manner consistent with CLIA requirements. This test has not been cleared or approved by the U.S. Food and Drug Administration. 17 REFERENCE VALUE No abnormal variants ADDITIONAL INFORMATION This test has been modified from the machine washer's instructions. Its performance characteristics were determined by [facility] in a manner consistent with CLIA requirements. This test has not been cleared or approved by the U.S. Food and Drug Administration. 18 No electrophoretic evidence of abnormal hemoglobin or beta thalassemia. See comment. Comment: These results do not exclude alpha thalassemia. The vast majority of hemoglobin variants and beta thalassemias are excluded, although some rare clinically significant hemoglobin disorders are electrophoretically silent. If otherwise unexplained lifelong/familial symptoms such as hemolysis (i.e. Terrance body hemolytic anemia), microcytosis, erythrocytosis, cyanosis, or hypoxia are present and additional testing is desired, please call the Metabolic Hematology Laboratory ( ). If alpha thalassemia is a consideration, alpha globin gene deletion/duplication analysis is available (ATHAL/Alpha-Globin Gene Analysis). Additional sample required. Test Performed by: [facility] - [address] [address] 19 RESULTS VERIFIED BY REPEAT ANALYSIS 20 RESULTS VERIFIED BY REPEAT ANALYSIS 21 RUN DATE: 08/05/14 [facility] LAB LIVE PAGE 1 RUN TIME: [id number], [place] [address] Specimen Inquiry Name: ANTONIO MOORE : [address]: Chris Angeles MD Acct: [id number] Unit: [id number] AGE: 48 Location: [facility] Re08/03/14 SEX: M Status: REG REF SPEC: [id number] CONNER: 08/03/14-[address] [facility] [address]: Chris Angeles MD REQ: [id number] RECD: 08/03/14 STATUS: TIFFANIE MOCTEZUMA DR: Talon Gray MD _ ORDERED: LEVEL III, LEVEL IV FINAL DIAGNOSIS 1. Skin, scalp, excision: A. Hyperplastic actinic keratosis with severe dysplasia (carcinoma in situ) with focal superficial micro-invasion. B. Deep, tip, and lateral margins of resection are clear. 2. Soft tissue, back, excision: Mature adipose tissue compatible with lipoma. CLINICAL HISTORY No history given GROSS DESCRIPTION 1. The specimen is received in formalin labeled [facility], Scalp Lesion , and consists of a 1.4 x 0.9 cm. ventura-white hair-bearing unoriented skin ellipse excised to a depth of 0.5 cm. There is a central 0.6 x 0.5 x 0.2 cm. ventura-patel lobulated nodule. The specimen is inked, serially sectioned and entirely submitted in cassettes A and B to include ellipse ends in cassette A. 2. The specimen is received in formalin labeled [facility], Back Mass, and consists of a 9.0 x 6.1 x 3.5 cm. yellow, irregular well encapsulated irregular portion of adipose tissue. The specimen is surfaced by ventura-white fibromembranous tissue. The cut surface consists of glistening yellow lobulated adipose tissue. The specimen is inked , serially sectioned, and mill representative sections are submitted in cassettes A through E. Signed (signature on file) Rustam Moralez MD 1605 END OF REPORT * ML=Testing performed at Main Lab DEPARTMENT OF PATHOLOGY, [address] [place] [address] Rustam Moralez M.D. 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 R07.9 Chest pain, unspecified Office Visit 12/31/2018 11:10a [facility] Office Talon Land I1Abhinav Essential ( primary) Brenna Gray hypertension Office Visit 12/18/2018 6:20p Main Office Talon [place] R07.9 Chest pain, Brenna Gray unspecified R51 Headache M54.12 Radiculopathy, cervical region Office Visit 06/17/2017 4:30p [facility] Office Talon Land R71.8 Other abnormality Brenna Gray of red blood cells M10.9 Gout, unspecified Z12.11 Encounter for screening for malignant neoplasm of colon E78.1 Pure hyperglyceridemia Office Visit 06/12/2017 4:20p [facility] Office Talon Gray M79.671 Pain in right M.D. foot R73.01 Impaired fasting glucose Z12.5 Encounter for screening for malignant neoplasm of prostate E78.1 Pure hyperglyceridemia Office Visit 06/02/2015 11:10a Main Office Kb Emerson M.D. 709.9 Skin & Subcutaneous Tissue Disorders Unspec 372.40 Pterygium Unspec Office Visit 06/21/2014 2:30p [facility] aTlon Land 727.43 Ganglion Unspec Brenna Gray 709.9 Skin & Subcutaneous Tissue Disorders Unspec V06.1 Tlynulfqdh-Ikaqjed-Plauxnjd Combined (DTaP) V06.5 Tetanus Diphtheria (DT) V77.91 Screening For Lipoid Disorders 272.1 Hypertriglyceridemia Pure Office Visit 04/28/2011 10:30a Main Office Rosetta Saunders 724.4 Neuritis Or Brenna Heard Radiculitis Thoracic Or Lumbosacral Unspec 724.2 Lumbago Office Visit 05/18/2010 8:00p Main Office Kenneth Land 601.9 Prostatitis Unspec Brenna Ramirez Office Visit 05/05/2010 9:00a [facility] Trisha Gamble, 601.9 Prostatitis Unspec Afnp-C 214.1 Lipoma Other Skin And Subcutaneous Tissue Plan of Treatment 03/17/2019 - Janki Prater, FNPR03.0 Elevated blood-pressure reading, without diagnosis of fwsbqgcwwduwL11.8 Other pruritusNew Medication:Famotidine 20 mg - take one tablet by mouth twice a dayZyrtec Allergy 10 mg - 1 by mouth every dayAllComments:Medication Management Patient Understands medications he ' s taking? Yes No Are there Barriers to Adherence? Yes No Has the patient been asked about herbal supplements and therapies, andOT meds? Yes No As always, we strongly encourage a healthy diet and making physical activity a part of your every day life. If you have questions about how or where to start, please contact the office.
[2019-04-09] MEDS ORDERED: fentaNYL* 50 MCG/ML 2 ML VIAL (100 MCG VIAL) IV SLOW PU ONE (20:37)
[2019-04-09] MEDS ORDERED: Famotidine IV* 10 MG/ML 2 ML (20 mg) IV SLOW PU ONE (20:37)
[2019-04-09] MEDS ORDERED: Ondansetron INJ* 2 MG/ML VIAL IV ONE (20:37)
[2019-04-09 20:56] LABS: ABS Basophils 0.1 10^3/ul (0-0.2); ABS Eosinophils 0.1 10^3/ul (0-0.6); ABS Lymphocytes 1.2 10^3/ul (1.0-4.8); ABS Monocytes 0.4 10^3/ul (0-0.8); ABS Neutrophils 7.2 10^3/ul (1.5-7.7); Eosinophil % 0.6 %; Hematocrit 42 % (42-52); Hemoglobin 13.2 g/dL (14.0-18.0); Lymphocyte % 13.3 %; Mean Corpuscular HGB Conc 32 g/dL (31-36); Mean Corpuscular Hemoglobin 21 pg (27-31); Mean Corpuscular Volume 65 fL (80-94); Mean Platelet Volume 8.4 fL (7.4-10.4); Nucleated Red Blood Cells % 0.1; Platelet Count 205 10^3/uL (150-450); Red Blood Count 6.41 10^6 /uL (4.18-5.48); Red Cell Distribution Width 15 % (10-15)
[2019-04-09] MEDS ORDERED: Lactated Ringers 1000 ML Bag* 1,000 ML IV SCH (21:00)
--- NOTE | 2019-04-09 21:02 | ED ---
Abdominal Pain/Male - HPI Summary HPI Summary: Pt is a 53 y/o M presenting to the ED with a chief complaint of R lower flank pain. The pain was rapid onset around 1730, described as sharp, and is not something hes experiences before. He reports nausea, dysuria, and hematuria. He denies vomiting, burning with urination, or frequency. He does not have hx of kidney stones. - History of Current Complaint Chief Complaint: EDFlankPain Stated Complaint: ABD PAIN PER PT Hx Obtained From: Patient Onset/Duration: Sudden Onset, Lasting Hours, Still Present Timing: Constant, Lasting Hours Severity Initially: Severe Severity Currently: Severe Pain Intensity: 10 Pain Scale Used: 0-10 Numeric Location: Flank Radiates: No Character: Sharp Aggravating Factor(s): Nothing Alleviating Factor(s): Nothing Associated Signs And Symptoms: Positive: Urinary Symptoms, Nausea. Negative: Vomiting - Allergies/Home Medications Allergies/Adverse Reactions: Allergies Allergy/AdvReac Type Severity Reaction Status Date / Time No Known Allergies Allergy Verified 04/09/19 19:48 PMH/Surg Hx/FS Hx/Imm Hx Previously Healthy: Yes Cardiovascular History: Reports: Hx Hypertension History: Denies: Hx Kidney Stones Musculoskeletal History: Reports: Other Musculoskeletal History - fasciitis Denies: Hx Arthritis Sensory History: Reports: Hx Contacts or Glasses Denies: Hx Deafness, Hx Hearing Aid Opthamlomology History: Reports: Hx Contacts or Glasses - Surgical History Surgery Procedure, Year, and Place: lipoma removal Infectious Disease History: No Infectious Disease History: Denies: Traveled Outside the [place] in Last 30 Days - Family History Known Family History: Positive: Other - Positive: thyroid cancer-mother Negative: Cardiac Disease - Social History Alcohol Use: Occasionally Alcohol Amount: unknown Hx Substance Use: No Substance Use Type: Reports: None Hx Tobacco Use: No Smoking Status (MU): Never Smoked Tobacco Review of Systems Positive: Abdominal Pain, Nausea. Negative: Vomiting Positive: dysuria, hematuria. Negative: burning, frequency All Other Systems Reviewed And Are Negative: Yes Physical Exam - Summary Physical Exam Summary: Constitutional: Well-developed, Well-nourished, Alert. (-) Distressed Skin: Warm, Dry HENT: Normocephalic; Atraumatic Eyes: Conjunctiva normal Neck: Musculoskeletal ROM normal neck. (-) JVD, (-) Stridor, (-) Tracheal deviation Cardio: Rhythm regular, rate normal, Heart sounds normal; Intact distal pulses; The pedal pulses are 2+ and symmetric. Radial pulses are 2+ and symmetric. Pulmonary/Chest wall: Effort normal. (-) Respiratory distress, (-) Wheezes, (-) Rales Abd: Soft, very mild R CVA tenderness, no significant RLQ tenderness to deep palpation, (-) Distension, (-) Guarding, (-) Rebound Musculoskeletal: (-) Edema Neuro: Alert, Oriented x3 Psych: Mood and affect Normal Triage Information Reviewed: Yes Vital Signs On Initial Exam: Initial Vitals Temp Pulse Resp BP Pulse Ox 98.5 F 50 20 210/104 99 04/09/19 18:45 04/09/19 18:45 04/09/19 18:45 04/09/19 18:45 04/09/19 18:45 Vital Signs Reviewed: Yes Diagnostics - Vital Signs Vital Signs Temp Pulse Resp BP Pulse Ox 04/09/19 20:50 16 04/09/19 20:20 52 150/86 92 04/09/19 20:00 51 95 04/09/19 19:51 52 97 04/09/19 19:50 52 173/90 96 04/09/19 19:05 200/98 04/09/19 18:45 98.5 F 50 20 210/104 99 - Laboratory Lab Results: Lab Results 04/09/19 Range/Units 20:45 WBC 9.0 (3.5-10.8) 10^3/uL RBC 6.41 H (4.18-5.48) 10^6 /uL Hgb 13.2 L (14.0-18.0) g/dL Hct 42 (42-52) % MCV 65 L (80-94) fL MCH 21 L (27-31) pg MCHC 32 (31-36) g/dL RDW 15 (10-15) % Plt Count 205 (150-450) 10^3/uL MPV 8.4 (7.4-10.4) fL Neut % (Auto) 80.3 % Lymph % (Auto) 13.3 % [place] % (Auto) 4.9 % Eos % (Auto) 0.6 % Baso % (Auto) 0.9 % Absolute Neuts (auto) 7.2 (1.5-7.7) 10^3/ul Absolute Lymphs (auto) 1.2 (1.0-4.8) 10^3/ul Absolute Monos (auto) 0.4 (0-0.8) 10^3/ul Absolute Eos (auto) 0.1 (0-0.6) 10^3/ul Absolute Basos (auto) 0.1 (0-0.2) 10^3/ul Absolute Nucleated RBC 0.0 10^3/ul Nucleated RBC % 0.1 Result Diagrams: 04/09/19 20:45 04/09/19 20:45 Lab Statement: Any lab studies that have been ordered have been reviewed, and results considered in the medical decision making process. - Radiology Abd XR Radiology Interpretation Completed By: ED Physician Summary of Radiographic Findings: Nonspecific bowel gas pattern with opacity in the R lower pelvis that may represent renal calculi. Pending official radiology report. - CT CT a/p CT Interpretation Completed By: Radiologist Summary of CT Findings: 1. Minimally obstructing 6mm calculus proximal third right ureter. 2. Moderate hepatic steatosis (14-28% fat fraction). ED physician has reviewed this report. Abdominal Pain Male Course/Dx - Course Course Of Treatment: Pt is a 53 y/o M presenting to the ED with a chief complaint of R lower flank pain. The pain was rapid onset around 1730, described as sharp, and is not something hes experiences before. He reports nausea, dysuria, and hematuria. He denies vomiting, burning with urination, or frequency. He does not have hx of kidney stones. Pts hematology shows RBC of 6.41, Hgb of 13.2, MCV of 65, and MCH of 21. CT a/p shows: 1. Minimally obstructing 6mm calculus proximal third right ureter. 2. Moderate hepatic steatosis (14-28% fat fraction). Pts urine shows 1+ protein, 1+ ketones, 3+ blood, 1+ WBC, 3+ RBC, and present yeast. I spoke with Dr. Muñiz about the pt at 221. He recommended pain control. Because the stone is proximal and there is minimal hydronephrosis, he recommends allowing time for the stone to pass, and providing his information to the pt for f/u. He also recommended a KUB of his abd to see the stone, and if we can see the stone, that will be how he tracks its movement. He will be d/c'ed with a dx of renal calculi with obstruction, and instructed to follow up with Dr. Muñiz. Abd XR shows: Nonspecific bowel gas pattern with opacity in the R lower pelvis that may represent renal calculi, pending official radiology report. - Diagnoses Provider Diagnoses: Urinary tract obstruction due to kidney stone - Provider Notifications Discussed Care Of Patient With: Marcus Muñiz Time Discussed With Above Provider: 22:14 Instructed by Provider To: Other - MD will f/u Discharge - Sign-Out/Discharge Documenting (check all that apply): Patient Departure Patient Received Moderate/Deep Sedation with Procedure: No - Discharge Plan Condition: Improved Disposition: HOME Prescriptions: Ondansetron ODT TAB* [Zofran 4 MG Odt TAB*] 4 mg PO Q6H PRN #20 tab.odt PRN Reason: Nausea oxyCODONE/Acetam5/325MG PREPAK [Percocet 5/325 TAB*] 0 tab PO TID PRN #10 tab MDD 3 PRN Reason: Pain Tamsulosin HCl [Flomax] 0.4 mg PO DAILY 10 Days #10 cap.er.24h Patient Education Materials: Kidney Stones (ED) Referrals: Talon Gray MD [Primary Care Provider] - Marcus Muñiz MD [Medical Doctor] - - Billing Disposition and Condition Condition: IMPROVED Disposition: Home - Attestation Statements Document Initiated by Gareth: Yes Documenting Scribe: Kendra Elliott Provider For Whom Gareth is Documenting (Include Credential): Chris Hopkins MD. Scribe Attestation: Kendra Guevara scribed for Chris Hopkins MD. on 04/10/19 at 0624. Scribe Documentation Reviewed: Yes Provider Attestation: The documentation as recorded by the Kendra armenta accurately reflects the service I personally performed and the decisions made by me, Chris Hopkins MD. Status of Scribe Document: Viewed Consult Consult: I spoke with Dr. Muñiz about the pt at 2214. He recommended pain control. Because the stone is proximal and there is minimal hydronephrosis, he recommends allowing time for the stone to pass, and providing his information to the pt for f/u. He also recommended a KUB of his abd to see the stone, and if we can see the stone, that will be how he tracks its movement.
[2019-04-09 21:19] LABS: BUN/Creatinine Ratio 13.8 (8-20); Calcium 9.8 mg/dL (8.6-10.3)
[2019-04-09] MEDS ORDERED: Tamsulosin CAP* 0.4 MG PO ONE (22:11)
[2019-04-09 22:18] LABS: Urine Appearance Cloudy; Urine Bacteria Absent (Absent); Urine Bilirubin Negative (Negative); Urine Blood 3+ (Negative); Urine Color Yellow; Urine Glucose Negative (Negative); Urine Ketones 1+ (Negative); Urine Nitrite Negative (Negative); Urine Protein 1+(30 mg/dL) (Negative); Urine Red Blood Cell 3+(>10/hpf) (Absent); Urine Specific Gravity 1.013 (1.010-1.030); Urine Urobilinogen Negative (Negative); Urine White Blood Cell 1+(6-10/hpf) (Absent)
[2019-04-10 00:02] VITALS: BP 158/74
== END 2019-04-10 00:01 | disposition home or self-care (01) ==
LOC: ED 18:43
DX: N20.0 Calculus of kidney (principal); N39.0 Urinary tract infection, site not specified; I10 Essential (primary) hypertension
CPT/HCPCS: 36415; 74018; 74176; 80048; 81003; 81015; 85025; 87086; 96361; 96374; 96375; 99283; J2405; J3010